=== PATIENT | female | born 2000 | race Caucasian/White ===

== ENCOUNTER 2023-10-04 13:45 | Emergency (ER) | payer OTHER ==
[~2023-10-04] VITALS: Ht 160 cm; Wt 63.6 kg
[2023-10-04] MEDS ORDERED: NAPR-56 PO (16:10)
[2023-10-04 16:25] VITALS: BP 122/77; PULSE 59; RESP 16; TEMP 98.1; O2SAT 98
== END 2023-10-04 16:27 | disposition home or self-care (01) ==
LOC: ER 13:45
DX: S62.616A Displaced fracture of proximal phalanx of right little finger, initial encounter for closed fracture (principal); Z79.1 Long term (current) use of non-steroidal anti-inflammatories (NSAID); Z79.899 Other long term (current) drug therapy; V98.8XXA Other specified transport accidents, initial encounter; Y93.89 Activity, other specified; Y92.89 Other specified places as the place of occurrence of the external cause; Y99.8 Other external cause status
CPT/HCPCS: 29130; 70450; 73130; 73610; 99284